=== PATIENT | female | born 1960 | race Caucasian/White ===

== ENCOUNTER 2017-04-22 09:46 | Emergency (ER) | payer MEDICAID ==
--- NOTE | ~2017-04-22 | ER ---
PATIENT'S NAME: LUBA LOPEZ [facility] AGE: 57 Y [address] ROOM: [place] [address] LOCATION: [facility] ADMIT DATE: 04/22/2017 ER/Outpatient Report DISCHARGE DATE: 04/22/2017 FAMILY PHYSICIAN: Physician, Unknown ATTENDING PHYSICIAN: Dara Pérez Time of Arrival: Time of Evaluation: Admission date and time documented in the medical record. I saw the patient at 1000 hours. CHIEF COMPLAINT: Chest pressure. HISTORY OF PRESENT ILLNESS: This patient is a 57-year-old female, who was an inpatient treatment at [facility]. Two hours prior to admission to the emergency department, she developed some anterior chest pressure across her entire anterior chest underneath both breasts. No radiation to her shoulders or down her arm, neck, back, or jaw. No diaphoresis, nausea, vomiting, or shortness of breath. No history of known coronary artery disease. She does have hypertension. The patient states that her grandmother had some type of heart disease. Otherwise, she was unfamiliar with anybody else in her family with heart problems. No fall or trauma. No recent colds, coughs, flus, fever, chills, or sweats. She is not lightheaded or dizzy. She had no syncope or near syncope. No headache, eyes, ears, nose, throat, neck, or spine pain. No abdominal pain. No diarrhea. No urinary frequency, urgency, or dysuria. No incontinence. No joint or muscle swelling, redness, or pain. No skin eruptions or rash. No history of endocrine problems, neurological changes. Does have a history of psychiatric issues, schizoaffective disorder, and bipolar disorder with depression, catatonic behavior. REVIEW OF SYSTEMS: All systems reviewed by me are negative with the exception of those discussed in the history of the present illness. PHYSICAL EXAMINATION: VITAL SIGNS: Temperature 97.2, tympanic; pulse 103; respiratory rate 16; blood pressure 143/98; and O2 saturation on room air is 97%. Casa Coma Scale was 15. HEENT: Head; normocephalic. No abrasion, contusion, laceration, swelling of the scalp or face. Eyes; extraocular muscles intact. PERRL. Ears; clear TMs bilaterally. Nose and Throat; clear. Mucous membranes moist. Teeth, jaw intact. NECK: No nuchal rigidity. No thyromegaly or cervical lymphadenopathy. No carotid bruits. PATIENT'S NAME: LUBA LOPEZ [facility] AGE: 57 Y [address] ROOM: [place], [place] [address] LOCATION: [facility] ADMIT DATE: 04/22/2017 ER/Outpatient Report DISCHARGE DATE: 04/22/2017 FAMILY PHYSICIAN: Physician, Unknown ATTENDING PHYSICIAN: Dara Pérez SPINE: Nontender. No deformity. LUNGS: Clear. Good air flow. No rales, rhonchi, or wheezes. HEART: Regular. Pulses are palpable. The patient does have tenderness in the lower aspect of her anterior rib cage to palpation. Also has tenderness over the lower half of her sternum. This appears to be reproducing her pain and pressure sensation. ABDOMEN: Soft. Some epigastric tenderness to palpation. No distention. No true guarding or rigidity. No rebound tenderness. Active bowel tones. No organomegaly or abnormal masses palpable. No CVA tenderness. EXTREMITIES: Without peripheral edema, cyanosis, or deformity. NEUROLOGIC: Neurovascularly intact. SKIN: Clear. No skin eruptions or rash. IMAGING STUDIES: EKG x2, 2 hours apart showed mild tachycardia, no acute ST elevation, or ischemic change, or arrhythmia. Chest x-ray showed no acute infiltrate or change. We will review x-ray with the radiologist. LABORATORY DATA: CMS was normal except for a low potassium of 3.1. Elevated AST of 79. CPK x2, 2 hours apart was normal. Point of care cardiac enzymes were normal x2, 2 hours apart. CRP was less than 0.29, TSH was 1.69, and ProBNP was less than 30. White count was 6700, 63 segs, 26 lymphs, 6 monos, 4 eos, and 1 baso. Hemoglobin was 15.5 with hematocrit of 45.9, and platelet count was 224,000. PTT was 24. Prothrombin time was 10.4 with an INR of 0.59. EMERGENCY DEPARTMENT COURSE: We did give the patient 4 baby aspirin orally here in the emergency department. Did give the patient two 0.4 mg sublingual nitroglycerin tablets. The patient had mild improvement. IMPRESSION: 1. Lower anterior chest pressure, etiology uncertain. The patient had negative cardiac, pulmonary workup here in the emergency department. This most likely is musculoskeletal. Pain and pressure are reproducible with palpation of the lower anterior right and left chest machado. The patient also had epigastric discomfort to palpation. 2. Hypokalemia. The patient is on oral potassium treatment. 3. Inpatient psychiatric treatment at [facility]. The patient has a history of bipolar disorder with depression and schizoaffective disorder. 4. Hypertension. PLAN: The patient was discharged from the emergency department, transferred back to PATIENT'S NAME: LUBA LOPEZ [facility] AGE: 57 Y [address] ROOM: [place] [address] LOCATION: [facility] ADMIT DATE: 04/22/2017 ER/Outpatient Report DISCHARGE DATE: 04/22/2017 FAMILY PHYSICIAN: Physician, Unknown ATTENDING PHYSICIAN: Dara Pérez [facility]. Continue present medications and care as inpatient. Continue potassium replacement therapy orally. Follow up with personal physician as needed. I did discuss my findings and recommendations with the patient. DARA PÉREZ MD SDS/modl /[id number] d: 04/22/171912 t: 04/23/17612, OUTPATIENT REPORT
[~2017-04-22 09:46] MED LIST changes: -ATIVAN 1 MG1 MG PO; -CLOZARIL100 MG PO; -CLOZARIL25 MG PO; -K-TAB 10MEQ10 MEQ PO; -TYLENOL325 MG PO
[2017-04-22 10:06] LABS: BASOPHIL # 0.1 K/uL (0.0-0.2); BASOPHIL % 0.9 %; EOSINOPHIL # 0.3 K/uL (0.0-0.5); EOSINOPHIL % 3.7 %; HEMATOCRIT 45.9 % (33.0-46.0); HEMOGLOBIN 15.5 g/dL (10.0-15.0); IMMATURE GRANULOCYTE % 0.4 %; LYMPHOCYTE # 1.7 K/uL (0.8-4.0); LYMPHOCYTE % 25.8 %; MCH 29.9 pg (27.0-34.0); MCHC 33.8 gm/dL (32.0-36.5); MCV 88.4 fl (83.0-98.0); MONOCYTE # 0.4 K/uL (0.0-1.0); MONOCYTE % 6.4 %; MPV 8.9 fl (9.4-12.4); NEUTROPHIL # (ANC) 4.2 K/uL (1.8-7.8); NEUTROPHIL % 62.8 %; NRBC % 0 /100WBC (0-0.00); PLATELET COUNT 224 K/uL (150-450); RBC 5.19 M/uL (3.50-5.50); RDW-CV 12.1 % (11.9-14.6); WBC 6.7 K/uL (4.0-11.0)
[2017-04-22 10:15] LABS: INR - (THERAPEUTIC) 0.99 (0.92-1.07); PROTIME 10.4 SECONDS (9.8-11.4); PTT 24 SECONDS (25-32)
[2017-04-22 10:27] LABS: ALBUMIN 3.7 gm/dL (3.5-5.0); ALK PHOS 88 IU/L (33-138); ALT 65 IU/L (12-78); ANION GAP 11.1 (10.0-19.0); AST 79 IU/L (10-40); BLOOD UREA NITROGEN 20 mg/dL (6-24); CALCIUM 8.9 mg/dL (8.5-10.5); CHLORIDE 100 mMol/L (96-110); CO2 31 mMol/L (22-32); CPK 30 IU/L (21-215); CREATININE 0.8 mg/dL (0.5-1.1); POTASSIUM 3.1 mMol/L (3.7-5.1); SODIUM 139 mMol/L (135-145); TOTAL PROTEIN 7.9 g/dL (6.0-8.4)
[2017-04-22 10:28] LABS: TOTAL BILIRUBIN 0.6 mg/dL (0.0-1.5)
[2017-04-22 12:22] LABS: CPK 25 IU/L (21-215)
[2017-04-25] MEDS ORDERED: CLOZARIL100 MG PO (10:39)
[2017-04-25] MEDS ORDERED: CLOZARIL25 MG PO (10:40)
[2017-04-25] MEDS ORDERED: ATIVAN 1 MG1 MG PO (10:42)
[2017-04-25] MEDS ORDERED: K-TAB 10MEQ10 MEQ PO (10:43)
[2017-04-25] MEDS ORDERED: TYLENOL325 MG PO (10:45)
== END 2017-04-22 13:23 | disposition disaster alternative care site (69) ==
LOC: GMED 09:46
PROVIDERS: Emergency Medicine
DX: R07.89 Other chest pain (principal); E87.6 Hypokalemia; I10 Essential (primary) hypertension; R10.13 Epigastric pain; F31.9 Bipolar disorder, unspecified; F25.9 Schizoaffective disorder, unspecified; Z86.59 Personal history of other mental and behavioral disorders; Z88.5 Allergy status to narcotic agent; Z88.0 Allergy status to penicillin; Z88.8 Allergy status to other drugs, medicaments and biological substances; Z98.890 Other specified postprocedural states

== ENCOUNTER → 2017-04-22 | Outpatient (CLI) | payer MEDICAID ==
[~2017-04-22] MED LIST: ABILIFY MAINTE400 M1 IM; ATARAX25 MG PO; ATIVAN 1 MG1 MG PO; CLOZARIL100 MG PO; CLOZARIL25 MG PO; COGENTIN1 MG PO; DEPAKOTE EXTEN500 MG PO; HYGROTON25 MG PO; K-TAB 10MEQ10 MEQ PO; LAMICTAL200 MG PO; RESTORIL15 MG PO; TRILEPTAL600 MG PO; TYLENOL325 MG PO; ZYPREXA10 MG PO
== END | disposition disaster alternative care site (69) ==
LOC: GAMB 09:23
DX: R07.89 Other chest pain (principal); I95.9 Hypotension, unspecified; I10 Essential (primary) hypertension; Z79.899 Other long term (current) drug therapy; Z88.0 Allergy status to penicillin; Z88.8 Allergy status to other drugs, medicaments and biological substances; Z88.5 Allergy status to narcotic agent; Z88.2 Allergy status to sulfonamides
CPT/HCPCS: A0425; A0427

== ENCOUNTER → 2017-04-22 | Outpatient (CLI) | payer MEDICAID | END | disposition disaster alternative care site (69) | LOC: GAMB 13:20 | DX: R53.1 Weakness (principal); I10 Essential (primary) hypertension; Z79.899 Other long term (current) drug therapy; Z88.0 Allergy status to penicillin; Z88.2 Allergy status to sulfonamides; Z88.8 Allergy status to other drugs, medicaments and biological substances | CPT/HCPCS: A0425; A0428 ==